=== PATIENT | female | born 1970 | race African-American/Black ===

== ENCOUNTER 2018-05-23 17:17 | Observation (INO) | payer OTHER ==
[~2018-05-23 17:17] MED LIST: ISOVUE-370 76%-LOCM 1 ML ONE
[2018-05-23 18:24] LABS: #Basophils 0.1 thou/uL (0.0-0.2); #Eosinphils 0.3 thou/uL (0.0-0.7); #Lymphocytes 2.9 thou/uL (1.20-3.40); #Monocytes 0.4 thou/uL (0.11-0.59); #Neutrophils 3.2 thou/uL (1.40-6.50); %Basophils 1.5 % (0.0-1.0); %Eosinophils 3.8 % (0.0-10.0); %Lymphocytes 42.4 % (21.0-51.0); %Monocytes 6.2 % (0.0-10.0); %Neutrophils 46.2 % (42.0-75.0); Mean Corpuscular HGB CONC 31.9 g/dL (32.0-36.0); Mean Corpuscular Hemoglobin 26.9 pg (27.0-31.0); Mean Corpuscular Volume 84.3 fL (78.0-98.0); Mean Platelet Volume 10.5 fL (7.4-10.4); Platelet Count 204 thou/uL (130-400); RBC Distribution Width 14.5 % (11.5-14.5); Red Blood Cell (RBC) Count 4.45 mill/uL (4.20-5.40); White Blood Cell (WBC) Count 6.9 thou/uL (4.8-10.8)
[2018-05-23 18:44] LABS: ALT (SGPT) 16 U/L (8-55); AST (SGOT) 18 U/L (5-34); Albumin 4.5 g/dL (3.5-5.0); Alkaline Phosphatase 70 U/L (40-150); Anion Gap 15 mmol/L (10-20); BUN (Urea Nitrogen) 13 mg/dL (7.0-18.7); Bilirubin, Total 0.6 mg/dL (0.2-1.2); CK (CPK) 110 U/L (29-168); Calc. Creatinine Clearance 0 mL/min (70-130); Calcium 9.9 mg/dL (7.8-10.44); Carbon Dioxide 21 mmol/L (22-29); Chloride 104 mmol/L (98-107); Estimated GFR-MDRD Greater than 90; Globulin 4.3 g/dL (2.4-3.5); Glucose 90 mg/dL (70-105); Potassium 3.4 mmol/L (3.5-5.1); Protein, Total 8.8 g/dL (6.0-8.3); Sodium 137 mmol/L (136-145)
[2018-05-23 18:49] LABS: CKMB 0.9 ng/mL (0-6.6); Troponin I Less than 0.010 ng/mL (< 0.028)
--- NOTE | 2018-05-23 19:55 | CT ---
CT ARTERIOGRAM CHEST WITH IV CONTRAST AND 3D MIP IMAGIN05/23/18 HISTORY: Chest pain. Dyspnea. FINDINGS: There is good contrast opacification of the pulmonary arteries and thoracic aorta with normal branchi ng of the great vessels. No pleural fluid or pneumothorax. No lobar consolidation. Postoperative abreu ges of the stomach with hiatal hernia. IMPRESSION: No CT evidence of pulmonary embolus. POS: [facility]
[2018-05-23 21:18] LABS: Troponin I Less than 0.010 ng/mL (< 0.028)
[2018-05-23] MEDS ORDERED: Acetaminophen 325 MG TAB PO PRN (21:45)
[2018-05-23 21:48] VITALS: BMI 41.3
[2018-05-24 00:28] LABS: Troponin I Less than 0.010 ng/mL (< 0.028)
[2018-05-24] MEDS ORDERED: Aspirin 325 MG TAB PO SCH (08:00)
[2018-05-24] MEDS: Amlodipine 10 MG TAB PO SCH (08:18)
[2018-05-24] MEDS: Hydrochlorothiazide 25 MG TAB PO SCH (08:18)
--- NOTE | 2018-05-24 08:25 | HP ---
CHIEF COMPLAINT: Shortness of breath. HISTORY OF PRESENT ILLNESS: This is a 48-year-old female with past medical history of hypertension, morbid obesity presenting to the ED with chief complaint of shortness of breath. Per the patient a m onth ago she was having shortness of breath and her shortness of breath was occasional and it was not a constant, but for the past 5 days, the shortness of breath has progressed and the patient is havin g shortness of breath with exertion. The patient states that every activity that she does, she gets shortness of breath with it and she also states that she recently went to [place] on 05/09/2018 to hav e a gastric sleeve surgery. Since the patient stated that her BMI was over 40 and the patient stated that she came back, not too long ago and she has been feeling well; however, she states that her jan rtness of breath has always been there and has nothing to do with her surgery. At this point, the pa rahat states that movement makes her shortness of breath worse and sitting down and resting make the shortness of breath better. The patient denies any chest pain, fever, headaches, dizziness, palpitat ions, abdominal pain, diarrhea, constipation, hematuria, hematochezia. Of note, the patient recently traveled from [place]. Patient denies using 2 pillows to help her sleep and denies any cough. REVIEW OF SYSTEMS: Positive for shortness of breath with exertion, otherwise as documented in HPI. All other systems were reviewed and are negative. FAMILY HISTORY: Per the patient dad does not have any heart failure or heart issues. Mom does not h ave any heart issues. PAST MEDICAL HISTORY: Hypertension, morbid obesity. PAST SURGICAL HISTORY: The patient had ectopic in the past, status post D&C, gastric sleev e, bypass, hysterectomy, tubal ligation, cholecystectomy. PSYCHIATRIC HISTORY: No psych history. SOCIAL HISTORY: The patient denies any illicit drug use. The patient denies any alcohol use and den ies any smoking history. ALLERGIES: No known drug allergies. HOME MEDICATIONS: The patient takes Norvasc 10 mg, omeprazole 20 mg. PHYSICAL EXAMINATION: VITAL SIGNS: Blood pressure is 133/85, pulse of 85, respiratory rate of 18, temperature of 98.4, O2 sat of 98 on room air. GENERAL: The patient is awake, alert, oriented x3, lying in bed, does not appear to be in any acute distress. The patient is speaking in full sentences. HEENT: Normocephalic, atraumatic. Pupils are equally round and reactive to light. Extraocular move ments are intact. No scleral icterus. No conjunctival pallor. LUNGS: Clear to auscultation bilaterally. No wheezing, no rales, no rhonchus appreciated. CARDIOVASCULAR: S1, S2, regular rate and rhythm. No murmurs, no gallops or rubs appreciated. ABDOMEN: Obese abdomen, soft, nontender, nondistended. Well healing surgical scars at the lower iv drant of the abdomen. No erythema, no dehiscence, no drainage, no cardinal signs of infection noted. EXTREMITIES: Upper extremities; 5/5 upper extremity strength, good pulses bilaterally. Lower extrem ities; no edema, 5/5 lower extremity strength. Good pulses bilaterally. NEUROLOGIC: Cranial nerves II-XII grossly intact. No neurologic deficits noted. SKIN: Warm, dry, and intact. EKG shows some T-wave flattening of the anterior leads, P-wave inversions, possible LAE, FL interval is 200 MS. LABORATORY DATA: WBC 6.9, hemoglobin 12.0, hematocrit 37.5, RDW is 14.5. D-dimer is 1.99, sodium 13 7, potassium is 3.4, chloride 104, carbon dioxide is 21, anion gap 15, BUN is 13, creatinine is 0.82, GFR is 90. Glucose is 90. AST is 18, ALT 16, alkaline phosphatase is 70. Creatinine kinase is 110 . Troponin less than 0.010 x2. CTA of the chest shows no CT evidence of PE. ASSESSMENT AND PLAN: 1. This is a 48-year-old female being admitted for shortness of breath. At this point, the patient is going to be admitted. Due to the patient having shortness of breath with exertion, we have ordere d echo to evaluate the patient's heart. We will also get a stress test. We will follow up on the re sults. 2. Abnormal EKG. At this point, due to patient's abnormal EKG, we are going to follow up on troponi ns to rule out acute coronary syndrome and will follow up on echo and stress test. 3. History of hypertension. We will continue patient on her home medication. 4. Deep venous thrombosis and gastrointestinal prophylaxis. We will do SCDs and there will be no ch emical gastrointestinal prophylaxis since the patient is going to be eating.
--- NOTE | 2018-05-24 14:16 | PDOC.PN ---
- Subjective Encounter Start Date: 05/24/18 Encounter Start Time: 09:30 Patient sitting up in bed, she reports feeling better. She denies any chest pain , shortness of breath or any complaints at this time. She is being observed for her intermittent shortness of breath that seems worse with activity. BMI 41. She underwent echo and 1st part of stress test, results pending and is planned for resting portion of stress test in the am. - Objective Resuscitation Status: Full MAR Reviewed: Yes Vital Signs & Weight: Vital Signs (12 hours) Temp Pulse Resp BP Pulse Ox 05/24/18 11:07 97.8 F 68 18 132/64 99 05/24/18 08:18 57 L 05/24/18 07:11 97.9 F 57 L 16 112/61 95 05/24/18 05:00 97.6 F 66 16 120/67 96 Weight Admit Weight 263 lb 9 oz Weight 263 lb 9 oz I&O: 05/23/18 05/24/18 05/25/18 06:59 06:59 06:59 Intake Total 0 Output Total 250 Balance -250 Result Diagrams: 05/23/18 17:50 05/23/18 17:50 Radiology Reviewed by me: Yes EKG Reviewed by me: No Phys Exam - Physical Examination Constitutional: NAD HEENT: PERRLA, moist MMs, sclera anicteric, oral pharynx no lesions Neck: no nodes, no JVD, supple Respiratory: no wheezing, no rales, no rhonchi, clear to auscultation bilateral Cardiovascular: RRR, no significant murmur, no rub Gastrointestinal: soft, non-tender, no distention, positive bowel sounds Obese Musculoskeletal: no edema, pulses present Neurological: non-focal, normal sensation, moves all 4 limbs Lymphatic: no nodes Dx/Plan (1) Morbid obesity Code(s): E66.01 - MORBID (SEVERE) OBESITY DUE TO EXCESS CALORIES Status: Acute (2) Shortness of breath on exertion Code(s): R06.02 - SHORTNESS OF BREATH Status: Acute - Plan cont current plan of care, DVT proph w/SCDs Patient underwent echocardiogram, and first part of stress test -: She will undergo resting portion of stress test in the am. -: Troponin WNL x2 -: If workup negative will likely discharge tomorrow with F/u with PCP * .
--- NOTE | 2018-05-24 14:30 | PDOC.EVN ---
Event Note - Event Note Event Note: patient discussed with LOUIS Gimenez. agree with management. 2 day stress test
[2018-05-25] MEDS: Hydrochlorothiazide 25 MG TAB PO SCH (09:16)
[2018-05-25] MEDS: Amlodipine 10 MG TAB PO SCH (09:17)
[2018-05-25 11:15] VITALS: BP 120/61; TEMP 98
--- NOTE | 2018-05-25 11:39 | NM ---
MYOCARDIAL PERFUSION STUDY: DATE: 05/25/2018. HISTORY: Shortness of breath with exertion. RADIOPHARMACEUTICALS: 29 mCi Technetium 99m sestamibi, IV at stress, and 31.4 mCi Technetium 99m sestamibi, IV at rest. MEDICATIONS: 22.4 mL (67.2 mg) adenosine, IV. FINDINGS: There is minimal diminished uptake of radiotracer seen in the ventricular apex on both the resting an d stress acquisitions. There is otherwise normal distribution of radiotracer seen throughout the lef t ventricular myocardium without evidence of a reversible defect identified. Quantitative analysis also shows no significant reversible defect. Gated images show normal ventricular wall motion and w all thickening. The calculated left ventricular ejection fraction is 57%. The transient ischemic di latation ratio is elevated at 1.28 with upper normal being 1.22. IMPRESSION: 1. Probably normal myocardial perfusion study without evidence of a reversible defect seen to sugges t ischemia. There is a very small fixed defect in the ventricular apex which could be related to mil d apical thinning. 2. Normal left ventricular ejection fraction of 57%. 3. Mildly elevated transient ischemic dilatation ratio of 1.28. POS: [facility]
--- NOTE | 2018-05-25 13:35 | PDOC.EVN ---
Event Note - Event Note Event Note: concur with DC plan per PA Demetrius Pernell
--- NOTE | 2018-05-26 10:50 | DIS ---
DATE OF ADMISSION: 05/23/2018 DATE OF DISCHARGE: 05/25/2018 DISCHARGE DIAGNOSES: 1. Dyspnea. 2. Morbid obesity with body mass index 41.3. CONSULTATIONS: None. PERTINENT LABORATORY AND X-RAY FINDINGS: WBC 6.9, RBC 4.45, hemoglobin 12.0. Sodium 137. Troponin less than 0.010 x2. Creatine kinase 110, alkaline phosphatase 70, AST and ALT within normal limits. D-dimer 1.99. CTA of chest showed no evidence of PE. HOSPITAL COURSE: This patient was admitted to telemetry for shortness of breath with exertion, seria l troponins were obtained which were found to be within normal limits x2. On admission, her D-dimer was found to be 1.99. However, CTA ruled out PE. Her symptoms of shortness of breath was intermitte nt and only occurred with exertion or when she lies flat on her left side. It was found that her BMI 41.3 would put her at morbid obesity. She underwent echocardiogram which showed an ejection fractio n of 60-65% with normal diastolic function. She also underwent 2 prior stress test which showed norm al myocardial perfusion study without evidence of reversible defect seen to suggest ischemia. There was, however, a very small fixed defect in the ventricle apex which could be related to a mild apical thinning. She also had an elevated transient ischemic dilation ratio of 1.28. She was seen and examined prior to discharge. She did not experience any further chest pain, shortne ss of breath or abdominal pain. Her vital signs remained stable throughout the hospital course. She was told to follow up with her PCP, Dr. Fishman in 1-2 weeks. She verbalized her understanding of the plan and was medically stable for discharge home on 05/25/2018. DISCHARGE MEDICATIONS: 1. Amlodipine 10 mg daily. 2. Hydrochlorothiazide 25 mg daily. 3. Omeprazole 40 mg twice daily. FOLLOWUP: The patient is to follow up with her primary care provider, Dr. Fishman in 1-2 weeks. CONDITION ON DISCHARGE: Stable. ACTIVITY: As tolerated. DIET: Heart healthy. CODE STATUS: FULL CODE. DISPOSITION: To home on 05/25/2018.
== END 2018-05-25 14:32 | disposition home or self-care (01) ==
LOC: ERS 17:17 → 2SW 20:00
PROVIDERS: ADMIT Internal Medicine; ATTEND Internal Medicine
DX: R06.02 Shortness of breath (principal); I10 Essential (primary) hypertension; E66.01 Morbid (severe) obesity due to excess calories; Z68.41 Body mass index [BMI] 40.0-44.9, adult; Z79.899 Other long term (current) drug therapy; Z98.84 Bariatric surgery status
CPT/HCPCS: 36415; 71275; 78452; 80053; 82550; 82553; 84484; 85025; 85379; 93005; 93017; 93306; A9500; G0378; J0153

== ENCOUNTER 2020-03-25 15:14 | Outpatient (CLI) | payer OTHER ==
--- NOTE | 2020-04-09 09:03 | MMO ---
Bilateral MAMMO Bilat Screen [facility]. CLINICAL HISTORY: Patient is 49 years old and is seen for screening. The patient has the following family history of breast cancer: mother, malignant (generic). The patient has no personal history of cancer. VIEWS: The views performed were: bilateral craniocaudal with tomosynthesis and bilateral mediolateral oblique with tomosynthesis. FILMS COMPARED: The present examination has been compared to a prior imaging study performed at [facility] on 09/04/2010. This study has been interpreted with the assistance of computer-aided detection. MAMMOGRAM FINDINGS: There are scattered fibroglandular densities. Benign calcifications are noted bilaterally. There are no suspicious masses, suspicious calcifications, or new areas of architectural distortion. IMPRESSION: THERE IS NO MAMMOGRAPHIC EVIDENCE OF MALIGNANCY. A ROUTINE FOLLOW-UP MAMMOGRAM IN 1 YEAR IS RECOMMENDED. THE RESULTS OF THIS EXAM WERE SENT TO THE PATIENT. ACR BI-RADS Category 2 - Benign finding MAMMOGRAPHY NOTE: 1. A negative mammogram report should not delay a biopsy if a dominant of clinically suspicious mass is present. 2. Approximately 10% to 15% of breast cancers are not detected by mammography. 3. Adenosis and dense breasts may obscure an underlying neoplasm. Reported by: CORRY BRADLEY MD Electonically Signed: [id number]
== END 2020-03-25 15:15 | disposition home or self-care (01) ==
LOC: BICMAMMO 15:14
PROVIDERS: ATTEND Physician Assistant
DX: Z12.31 Encounter for screening mammogram for malignant neoplasm of breast (principal); Z80.3 Family history of malignant neoplasm of breast
CPT/HCPCS: 77063; 77067

== ENCOUNTER 2023-04-22 09:28 | Outpatient (CLI) | payer BC | END 2023-04-22 09:29 | disposition home or self-care (01) | LOC: RAD 09:28 | PROVIDERS: ATTEND Family Medicine | DX: M25.551 Pain in right hip (principal); M25.552 Pain in left hip; M89.9 Disorder of bone, unspecified ==

== ENCOUNTER 2025-07-30 14:06 | Outpatient (CLI) | payer BC | END 2025-07-30 14:07 | disposition home or self-care (01) | LOC: SCSULT 14:06 | PROVIDERS: ATTEND Family Medicine | DX: M25.562 Pain in left knee (principal) ==